=== PATIENT | male | born 1950 | race Caucasian/White ===

== ENCOUNTER 2018-07-12 05:51 | Day surgery (SDC) | payer OTHER ==
[2018-07-12] MEDS ORDERED: FENTAnyl 50 MCG/ML VIAL (07:51)
[2018-07-12] MEDS ORDERED: MIDAZOLAM 1 MG/ML 2 ML INJ (07:51)
== END 2018-07-12 09:23 | disposition home or self-care (01) ==
LOC: GIL 05:51
DX: K31.7 Polyp of stomach and duodenum (principal); K21.9 Gastro-esophageal reflux disease without esophagitis; K44.9 Diaphragmatic hernia without obstruction or gangrene; K29.70 Gastritis, unspecified, without bleeding; E78.5 Hyperlipidemia, unspecified
CPT/HCPCS: 43239; 88305; 88312